=== PATIENT | male | born 1995 | race Caucasian/White ===

== ENCOUNTER 2016-12-26 20:27 | Emergency (ER) | payer OTHER ==
[~2016-12-26] VITALS: Ht 172.7 cm; Wt 90.4 kg
[~2016-12-26 20:27] MED LIST: BACTRIM,SEPT1 TABLET PO; KEFLEX500 MG PO; NO HOME MEDS; PERCOCET 5/31 TABLET PO
[2016-12-27] MEDS ORDERED: ZANTAC150 MG PO (00:10)
[2016-12-27] MEDS ORDERED: MOTRIN800 MG PO (00:10)
[2016-12-27 00:43] VITALS: BP 116/77
== END 2016-12-27 00:54 | disposition home or self-care (01) ==
LOC: EME 20:27
DX: R07.89 Other chest pain (principal); K21.9 Gastro-esophageal reflux disease without esophagitis; F17.200 Nicotine dependence, unspecified, uncomplicated; M54.2 Cervicalgia; M79.602 Pain in left arm; H61.21 Impacted cerumen, right ear
CPT/HCPCS: 71020; 93005; 99281; 99284